=== PATIENT | female | born 1965 | race Caucasian/White ===

== ENCOUNTER 2018-12-24 04:59 | Day surgery (SDC) | payer OTHER ==
[~2018-12-24 04:59] MED LIST: IBUPROFEN800 MG PO; LIPITOR20 MG PO; LOSARTAN POTASS50 MG PO; ORPH100T PO; RANITIDINE HCL300 MG PO; WELLBUTRIN SR150 MG PO
[2018-12-24] MEDS ORDERED: PERCOCET 5-3251 EACH PO (08:34)
[2018-12-24] MEDS ORDERED: DUI500 PO (08:34)
== END 2018-12-24 12:20 | disposition home or self-care (01) ==
LOC: CIR.AMB 04:59
DX: S52.121A Displaced fracture of head of right radius, initial encounter for closed fracture (principal); T84.121A Displacement of internal fixation device of left humerus, initial encounter

== ENCOUNTER 2019-06-17 06:52 | Day surgery (SDC) | payer OTHER ==
[~2019-06-17 06:52] MED LIST changes: +DUI500 PO; +PERCOCET 5-3251 EACH PO
== END 2019-06-17 21:48 | disposition home or self-care (01) ==
LOC: CIR.AMB 06:52 → ADM 09:15 → CIR.AMB 11:45
DX: S52.121K Displaced fracture of head of right radius, subsequent encounter for closed fracture with nonunion (principal); S53.124A Posterior dislocation of right ulnohumeral joint, initial encounter; M25.321 Other instability, right elbow
CPT/HCPCS: 24149; 24344; 24366; C1776